=== PATIENT | female | born 1990 | race Caucasian/White ===

== ENCOUNTER 2017-05-12 10:50 | Emergency (ER) | payer OTHER ==
[2017-05-12] MEDS ORDERED: ACETAMINOPHEN 325 MG TABLET (FP) PO ONE (11:16)
--- NOTE | 2017-05-12 11:16 | PDOC ---
History of Present Illness - General Chief Complaint: Redness To Affected Area Stated Complaint: LEFT BREAST REDNESS, SWELLING Time Seen by Provider: 05/12/17 10:54 - History of Present Illness Initial Comments: 05/12/17 13:04 Chief complaint: Left breast tenderness History of present illness: Patient is nursing, as a been experiencing pain and swelling below the nipple in the left breast for several days. She has continued to nurse. Review of systems: There is been a low-grade fever and chills, myalgias, but no nausea vomiting abdominal pain lightheadedness vaginal bleeding or discharge. Past medical history: Healthy female, recent uncomplicated childbirth, baby is healthy Social/family history reviewed and noncontributory Physical exam: Alert and oriented well-developed well-nourished no acute distress cooperative Temperature 100. Remainder vital signs normal HEENT clear Neck supple Without bruit mass or nodes lungs clear Lungs clear full breath sounds bilaterally CV regular without murmur rub or gallop Abdomen benign Examination of the left breast shows minimal swelling, moderate tenderness below the nipple. There is no erythema, induration, or warmth. There is no axillary adenopathy or tenderness. Impression: Mastitis Plan: Local treatment and antibiotics. Instructions for breast-feeding or pumping. Follow-up 24-48 hours if there is still pain, persistent fever, or increased swelling redness or heat in the affected breast. Patient comfortable at discharge with her to continue antibiotics and Tylenol and follow-up as recommended Past History - Past Medical History Allergies/Adverse Reactions: Allergies Allergy/AdvReac Type Severity Reaction Status Date / Time No Known Allergies Allergy Verified 05/12/17 10:54 Home Medications: Ambulatory Orders Acetaminophen [Tylenol .Extra-Strength -] 1,000 mg PO ASDIR 05/12/17 Cephalexin Monohydrate [Keflex] 500 mg PO Q6H #40 capsule 05/12/17 COPD: No Other medical history: PT DENIES - Suicide/Smoking/Psychosocial Hx Smoking History: Never smoked Information on smoking cessation initiated: No Hx Alcohol Use: No Drug/Substance Use Hx: No *Physical Exam - Vital Signs Last Vital Signs Temp Pulse Resp BP Pulse Ox 100 F H 98 H 18 112/67 99 05/12/17 10:50 05/12/17 10:50 05/12/17 10:50 05/12/17 10:50 05/12/17 10:50 *DC/Admit/Observation/Transfer Diagnosis at time of Disposition: Acute mastitis of left breast - Discharge Dispostion Disposition: HOME Condition at time of disposition: Stable Admit: No - Prescriptions Prescriptions: Cephalexin Monohydrate [Keflex] 500 mg PO Q6H #40 capsule - Referrals - Patient Instructions Printed Discharge Instructions: DI for Mastitis Additional Instructions: Warm compresses. Continue breast-feeding or pumping the breast frequently to avoid engorgement. Use supportive bra. If no improvement 24-48 hours, return to ER or see primary physician for further evaluation and treatment - Post Discharge Activity
[2017-05-12] MEDS ORDERED: CEFTRIAXONE 1 GM in DEXTROSE 5%-WATER - 100 ML IVPB ONE (11:17)
[2017-05-12] MEDS ORDERED: cefTRIAXone SODIUM 1 GM VIAL ONE (11:19)
[2017-05-12] MEDS ORDERED: ACETAMINOPHEN 325 MG TABLET (FP) ONE (11:19)
[2017-05-12 11:55] VITALS: BP 112/67; BMI 22.8
[2017-05-12 12:20] VITALS: PULSE 89; TEMP 99
== END 2017-05-12 12:20 | disposition home or self-care (01) ==
LOC: FER 10:50
DX: N61.0 Mastitis without abscess (principal)
CPT/HCPCS: 99283-25

== ENCOUNTER 2018-04-14 23:27 | Emergency (ER) | payer OTHER ==
[2018-04-14 23:32] VITALS: BP 116/74; PULSE 88; TEMP 99.3; BMI 22.4
--- NOTE | 2018-04-14 23:45 | PDOC ---
History of Present Illness - General Chief Complaint: Pain, Acute Stated Complaint: COUGH,BODY ACHES,FEVER Time Seen by Provider: 04/14/18 23:39 History Source: Patient Exam Limitations: No Limitations - History of Present Illness Initial Comments: 04/14/18 23:42 This is a 28-year-old female who comes in complaining of the cough, congestion, intermittent fevers and body aches 4-5 days. Patient did not get a flu shot this year. Patient however did the emergency room as an O2 sat of 98% and the rest of her vitals are normal and she does not have fever. Patient denies any nausea vomiting or diarrhea. Patient denies any fevers over the last couple of days. Patient said she took her child's inhaler but it did not help so she came in for a cough. Allergies: None Past Medical History: none Social history: Lives with family. No smoking. No alcohol. No illicit drugs. Surgical history: None General: No fevers or chills, no weakness, no weight loss HEENT: No change in vision. No sore throat,. No ear pain CardioVascular: no chest discomfort. No shortness of breath Respiratory:+ cough, or wheezing. Gastrointestinal: no nausea, vomiting, diarrhea or constipation, No rectal bleeding Genitourinary: No dysuria, hematuria, or frequency Musculoskeletal: No joint or muscle pain or swelling Neurologic: No headache, vertigo, dizziness or loss of consciousness Psychiatric: nor depression Skin: No rashes or easy bruising Endocrine: no increased thirst or abnormal weight change Allergic: no skin or latex allergy All other systems reviewed and normal Exam: General: Well-nourished well-developed individual, no acute distress HEENT: Throat: Normal, tonsils normal, no erythema or exudate Neck: Supple, no meningeal signs, no lymphadenopathy Eyes::Pupils equal reactive and round, extraocular motion intact Chest: Nontender to palpation Cardiac: S1-S2 normal, regular rate and rhythm, no murmurs rubs or gallops Respiratory: Lungs clear to auscultation bilateral, there is no wheezing Abdomen: Soft, nondistended, normal bowel sounds, there is no tenderness on palpation diffusely Extremities: Warm, dry, no cyanosis, clubbing, or edema Skin: No rashes Neuro: Alert and oriented x3, CN II - XII intact, nonfocal exam with normal strength, normal sensation, normal reflexes, normal gait, Psych: Normal mood and affect Assessment and plan: This 28-year-old female who very likely could've had influenza about 4-5 days ago. However patient is a 4 Tamiflu and she has no other symptoms suggestive of anything more serious than a viral illness at this point. Patient however is distressed secondary to her cough so Tessalon Perles prescription was sent to her pharmacy and patient was discharged home with her friend. Past History - Past Medical History Allergies/Adverse Reactions: Allergies Allergy/AdvReac Type Severity Reaction Status Date / Time No Known Allergies Allergy Verified 04/14/18 23:28 Home Medications: Ambulatory Orders Benzonatate [Tessalon Pearls -] 100 mg PO TID #21 capsule 04/14/18 COPD: No Other medical history: DENIES - Suicide/Smoking/Psychosocial Hx Smoking History: Never smoked Have you smoked in the past 12 months: No Information on smoking cessation initiated: No Hx Alcohol Use: No Drug/Substance Use Hx: No *Physical Exam - Vital Signs Last Vital Signs Temp Pulse Resp BP Pulse Ox 99.3 F 88 16 116/74 98 04/14/18 23:29 04/14/18 23:29 04/14/18 23:29 04/14/18 23:29 04/14/18 23:29 Moderate Sedation - Procedure Monitoring Vital Signs: Procedure Monitoring Vital Signs Temperature 99.3 F 04/14/18 23:29 Pulse Rate 88 04/14/18 23:29 Respiratory Rate 16 04/14/18 23:29 Blood Pressure 116/74 04/14/18 23:29 O2 Sat by Pulse Oximetry (%) 98 04/14/18 23:29 *DC/Admit/Observation/Transfer Diagnosis at time of Disposition: Viral upper respiratory illness - Discharge Dispostion Disposition: HOME Condition at time of disposition: Stable Decision to Admit order: No - Prescriptions Prescriptions: Benzonatate [Tessalon Pearls -] 100 mg PO TID #21 capsule - Referrals - Patient Instructions Additional Instructions: I sent a prescription to your pharmacy for cough medication called [place]asaltimoteo Namrata. Get the prescription filled in the morning and start taking the medication as prescribed Return to the emergency department immediately with ANY new, persistent or worsening symptoms. Continue any medications as previously prescribed by your physician. You should follow up with your primary doctor as soon as possible regarding today's emergency department visit. . Please make sure your doctor reviews the results of your emergency evaluation. Thank you for coming to the Emergency Department today for your care. It was a pleasure to see you today. Please note that your evaluation is INCOMPLETE until you follow-up with your doctor. - Post Discharge Activity
== END 2018-04-14 23:53 | disposition home or self-care (01) ==
LOC: FER 23:27
DX: J06.9 Acute upper respiratory infection, unspecified (principal); B97.89 Other viral agents as the cause of diseases classified elsewhere
CPT/HCPCS: 87804; 99281-25